=== PATIENT | female | born 1950 | race Caucasian/White ===

== ENCOUNTER → 2016-09-21 | Outpatient (CLI) | payer MEDICARE ==
[~2016-09-21] MED LIST: ASPI-586 PO; ASPI-999 PO; ATOR40TA70 PO; BISM262O27 PO; BISO1TAB8 PO; LEVO50TA PO; MULT1TAB69 PO; POTA20TA15 PO; [UNRECOGNIZED DRUG - CODE] PO
--- NOTE | 2016-09-23 19:13 | Diagnostic Imaging Report ---
Bilateral screening mammogram The current study was also evaluated with a Computer Aided Detection (CAD) system. Indication: Screening. No current complaints stated on the questionnaire. COMPARISON: The breasts are composed of heterogeneously dense parenchyma which may decrease mammographic sensitivity. There are scattered benign-appearing calcifications seen. Allowing for technique and positional differences, no suspicious change is seen. IMPRESSION: Dense breasts with no definite change. ACR BI-RADS Category 2: Benign findings. Result letter will be mailed to the patient. Note: At least 10% of breast cancer is not imaged by mammography. Dictated by: Dictated on workstation # [id number]
== END ==
LOC: RAD 09:22
PROVIDERS: ATTEND Nurse Practitioner Family
DX: Z12.31 Encounter for screening mammogram for malignant neoplasm of breast (principal)
CPT/HCPCS: 77067

== ENCOUNTER → 2017-04-12 | Outpatient (CLI) | payer MEDICARE ==
--- NOTE | 2017-04-12 21:23 | Diagnostic Imaging Report ---
Right breast ultrasound. INDICATION: Pain in the axilla and a bug bite along the right breast. FINDINGS: There is a focal area of skin thickening along the bug bite and there is a hypoechoic abnormal area measuring 1.9 x 1.1 x 0.5 cm at the 3 o'clock zone, 2 cm from the nipple. This is surrounded by slightly increased vascularity and is probably a small phlegmon related to a focal infection. No significant abscess is seen. In the axilla, there are mildly enlarged reactive lymph nodes seen up to 2.1 x 2.2 cm in size. The four quadrants and retroareolar region scanned demonstrate no suspicious mass. IMPRESSION: Findings are suggestive of a mild focal infection without drainable abscess in the right breast centered around the 3 o'clock zone with reactive lymph nodes in the axilla. Clinical follow-up is recommended. ACR BI-RADS Category 2: Benign findings. Dictated by: Dictated on workstation # [id number]
--- NOTE | 2017-04-12 21:27 | Diagnostic Imaging Report ---
Right breast diagnostic mammogram with tomography. The current study was also evaluated with a Computer Aided Detection (CAD) system. COMPARISON: 09/21/2016. INDICATION: Bug bite in the medial aspect of the breast with tenderness of the axilla. FINDINGS: The site of bug bite is marked in the medial periareolar region with mild skin thickening at this location without suspicious underlying lesion, mass or evidence of abscess. Heterogeneously dense parenchyma is seen in the breast with no suspicious lesion. Benign-appearing calcifications are noted. Minimally prominent right axillary lymph nodes are noted. IMPRESSION: Slight skin thickening at the bite site in the medial aspect of the right breast and axillary reactive lymph nodes are seen. Ultrasound evaluation pending. ACR BI-RADS Category 0: Incomplete. (Needs additional imaging evaluation). Result letter will be mailed to the patient. Note: At least 10% of breast cancer is not imaged by mammography. Dictated by: Dictated on workstation # [id number]
== END ==
LOC: RAD 08:00
PROVIDERS: ATTEND Nurse Practitioner Family
DX: N64.59 Other signs and symptoms in breast (principal); N64.4 Mastodynia
CPT/HCPCS: 76641

== ENCOUNTER 2017-05-11 12:50 | Outpatient (RCR) | payer MEDICARE ==
[2017-05-05 15:11] VITALS: BP 148/76
[2017-05-05 15:17] VITALS: BP 148/76
[2017-05-05] MEDS: VANCOMYCIN 1250 MG/NS 250 ML IVPB IV SCH ×2 (15:45)
[2017-05-05 15:49] VITALS: BP 148/76
[2017-05-05 16:20] LABS: BUN/CREATININE RATIO 12; CALCIUM 9.2 MG/DL (8.5-10.1); CARBON DIOXIDE 25 MMOL/L (21-32); CHLORIDE 100 MMOL/L (98-107); CREATININE SERUM 0.69 MG/DL (0.60-1.30); GFR ESTIMATED > 60; GLUCOSE 89 MG/DL (70-105); POTASSIUM 3.2 MMOL/L (3.6-5.0); SODIUM 135 MMOL/L (135-145)
[2017-05-05 17:52] VITALS: BP 148/76
[2017-05-06] MEDS: VANCOMYCIN 1250 MG/NS 250 ML IVPB IV SCH ×2 (14:08)
[2017-05-06 15:25] VITALS: BP 152/77
[2017-05-07 10:00] VITALS: BP 134/81
[2017-05-07] MEDS: VANCOMYCIN INJECTION 1,500 MG in NS IV 500 ML 500 ML IV SCH (11:18)
[2017-05-08 11:05] VITALS: BP 148/89
[2017-05-08] MEDS: VANCOMYCIN INJECTION 1,500 MG in NS IV 500 ML 500 ML IV SCH (11:45)
[2017-05-09] MEDS: VANCOMYCIN INJECTION 1,500 MG in NS IV 500 ML 500 ML IV SCH (13:29)
[2017-05-09 15:15] VITALS: BP 142/74
[2017-05-10 12:55] VITALS: BP 129/69
[2017-05-10] MEDS: VANCOMYCIN 1,750 MG/NS 500 ML IVPB IV SCH ×2 (13:20)
[~2017-05-11] VITALS: Ht 162.6 cm; Wt 59.0 kg
[~2017-05-11 12:50] MED LIST changes: +TROUGH ORDER-PHARMACY XX NR
[2017-05-11] MEDS: VANCOMYCIN 1,750 MG/NS 500 ML IVPB IV SCH ×2 (13:15)
[2017-05-11 15:20] VITALS: BP 140/69
[2017-05-20] MEDS ORDERED: UBID1CAP3 PO (11:14)
[2017-05-20] MEDS ORDERED: CHOL20003 PO (11:14)
[2017-05-20] MEDS ORDERED: ATOR20TA66 PO (11:16)
[2017-05-20] MEDS ORDERED: ACHD5005 PO (11:18)
[2017-06-07] MEDS ORDERED: diphenhydrAMINE 25 MG TAB (BENADRYL) PO ONE (15:35)
== END 2017-08-03 | disposition home or self-care (01) ==
LOC: SDC 12:50
PROVIDERS: ATTEND Surgery
DX: N61.0 Mastitis without abscess (principal)
CPT/HCPCS: 36415; 80048; 80202; 96365; 96366

== ENCOUNTER 2017-05-20 10:22 | Day surgery (SDC) | payer MEDICARE ==
[~2017-05-20] VITALS: Ht 163.8 cm; Wt 62.1 kg
[~2017-05-20 10:22] MED LIST changes: -TROUGH ORDER-PHARMACY XX NR
[2017-05-20] MEDS ORDERED: UBID1CAP3 PO (11:14)
[2017-05-20] MEDS ORDERED: CHOL20003 PO (11:14)
[2017-05-20] MEDS ORDERED: ATOR20TA66 PO (11:16)
--- NOTE | 2017-05-20 11:17 | Progress Note-Pre Operative ---
Pre-Operative Progress Note H&P Reviewed The H&P was reviewed, patient examined and no changes noted. 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
[2017-05-20 11:18] VITALS: BP 136/78
[2017-05-20] MEDS ORDERED: HYDR-3812 PO (11:18)
--- NOTE | 2017-05-20 11:19 | Discharge Inst-Simple/Standard ---
Discharge Inst-Standard Discharge Medications New, Converted or Re-Newed RX: RX on Chart Patient Instructions/Follow Up Plan of Care/Instructions/FU: dressings off in 48 hours. May use the port. To see Dr. Arteaga as arranged before Activity as Tolerated: Yes Discharge Diet: No Restrictions MICHAEL PADILLA MD May 20, 2017 11:19 am
[2017-05-20] MEDS ORDERED: BUP/EPI 0.5% 1:200,000 (MARCAINE) 10ML VIAL IJ ONE (11:35)
[2017-05-20] MEDS ORDERED: HEParin (CENTRAL IV FLUSH) 500 UNIT/5 ML SYR ONE (11:35)
[2017-05-20] MEDS ORDERED: 0.9% SODIUM CHLORIDE PF INJ 20 ML VIAL ONE (11:36)
[2017-05-20] MEDS ORDERED: ceFAZolin 1,000 MG (ANCEF) VIAL ONE (12:01)
[2017-05-20] MEDS ORDERED: NS (IVPB) 50 ML ONE (12:01)
[2017-05-20] MEDS ORDERED: ONDANSETRON 4 MG/2 ML (SDV) Z0FRAN ONE (12:01)
[2017-05-20] MEDS ORDERED: FAMOTIDINE 20MG/2ML IV (PEPCID) ONE (12:01)
[2017-05-20] MEDS ORDERED: proPOfol 200 MG/20 ML (DIPRIVAN) VIAL IV ONE (12:03)
[2017-05-20] MEDS ORDERED: fentaNYL INJECTION 100 MCG/2 ML AMP ONE (12:03)
[2017-05-20] MEDS ORDERED: LIDOCAINE PF 2% 5 ML (XYLOCAINE) VIAL ONE (12:03)
[2017-05-20] MEDS ORDERED: SEVOFLURANE (ULTANE) 15 ML INHAL SOLN ONE (12:03)
[2017-05-20] MEDS ORDERED: MIDAZOLAM 2 MG/2 ML (VERSED) VIAL ONE (12:03)
[2017-05-20] MEDS ORDERED: DEXAMETHASONE 10 MG/ML (DECADRON) 1 ML VIAL ONE (12:03)
[2017-05-20] MEDS ORDERED: LACTATED RINGERS 1,000 ML IV PRN (12:10)
[2017-05-20] MEDS ORDERED: ONDANSETRON 4 MG/2 ML (SDV) Z0FRAN IV ONE (12:15)
[2017-05-20] MEDS ORDERED: FAMOTIDINE 20MG/2ML IV (PEPCID) IV ONE (12:15)
[2017-05-20] MEDS ORDERED: ceFAZolin 1 GM/NS 50 ML IVPB IV ONE ×2 (12:45)
[2017-05-20] MEDS ORDERED: ONDANSETRON 4 MG/2 ML (SDV) Z0FRAN IVP PRN (13:30)
[2017-05-20] MEDS ORDERED: morphine INJ 10 MG/ML 1ML (SYR OR VIAL) IVP PRN (13:30)
--- NOTE | 2017-05-20 13:39 | Operative Report ---
Operative Report Date of Procedure/Surgery May 20, 2017 Surgeon (s) MICHAEL PADILLA MD Emergency Room Physician (s): N/A Post-Operative Diagnosis Same Procedure Performed Lsyhla-l-Lzox placement Description of Procedure Anesthesia Type: General Estimated blood loss (mL): Minimal Specimen(s) collected/removed None Description of the Procedure Indication for procedure: This lady is due to receive systemic chemotherapy to manage triple negative, inflammatory carcinoma of the right breast. To facilitate this, placing an Hoqeys-r-Zvix was felt to be reasonable. Informed consent was obtained after reviewing the operative details and complications of hematoma, bacteremia and malfunction of the catheter requiring replacement. Description of procedure: She was placed supine on the operative table and general anesthesia induced using a laryngeal mask airway. Ancef was administered intravenously as prophylaxis against wound infection. Sequential compression devices were placed around her legs, to minimize the risk of venous thrombosis. Neck and upper chest were prepared and draped in the usual sterile manner. Left internal jugular vein was localized using a 12 MHz ultrasound probe and a floppy guidewire introduced into the heart, under fluoroscopy. A subcutaneous pocket was created over the infraclavicular fossa and the Remy catheter brought into the neck, in a retrograde fashion. It was then advanced into the heart, under fluoroscopy, using the peel-away sheath. The catheter was then pulled back to the superior vena cava and connected to the Iopzzc-l-Cbgg, that had been primed with heparinized saline. I was able to aspirate and flush the system without any difficulty. The port was then secured to the pectoralis tissue using 2-0 Prolene sutures. Skin incisions were closed using 3-0 Vicryl for the subcutaneous tissue and 4-0 Vicryl for skin, in a subcuticular fashion. Pre-preemptive analgesia was established using 0.5 percent Marcaine with epinephrine. She tolerated the procedure well, was extubated in the operating room and taken to the recovery room in a stable condition. Findings of the Procedure See op report Allergies and Home Medications Allergies Coded Allergies: Sulfa (Sulfonamide Antibiotics) (Verified Adverse Reaction, Mild, 08/27/15) "does not agree with me" Home Medications Aspirin 81 Mg Tab.chew, 81 MG PO DAILY for 30 Days, Ref 5 Prescribed by: WILFRID YOUNGER on 08/28/15 1256 Atorvastatin Calcium 20 Mg Tablet, 20 MG PO HS, (Reported) Bismuth Subsalicylate 262 Mg/15 Ml Oral.susp, 15 ML PO DAILY PRN for HEARTBURN, (Reported) Bisoprolol Fumarate/Hctz 1 Each Tablet, 1 TAB PO DAILY, (Reported) Cholecalciferol (Vitamin D3) 2,000 Unit Capsule, 2,000 UNIT PO DAILY, (Reported) Hydrocodone/Acetaminophen 1 Each Tablet, 1-2 TAB PO 4-6HR PRN for PAIN, #30 Ref 0 Prescribed by: MICHAEL PADILLA on 05/20/17 1118 Levothyroxine Sodium 50 Mcg Tablet, 50 MCG PO DAILY, (Reported) Potassium Chloride 20 Meq Tab.er.prt, 20 MEQ PO EVERY EVENING, (Reported) Ubidecarenone/Vitamin E 1 Each Capsule, 1 EACH PO DAILY, (Reported) MICHAEL PADILLA MD May 20, 2017 1:38 pm
--- NOTE | 2017-05-20 13:51 | Diagnostic Imaging Report ---
Indication: Central line placement Impression: 55 seconds of fluoroscopy was used by Dr. Jeter during left IJ Port-A-Cath insertion. Single digital image shows Port-A-Cath tip projecting over the cavoatrial junction. Dictated by: Dictated on workstation # [id number]
[2017-05-20 14:00] VITALS: BP 136/99
[2017-05-20 14:30] VITALS: BP 147/86
[2017-05-20 15:00] VITALS: BP 147/80
[2017-05-20 15:15] VITALS: BP 147/80
== END 2017-05-20 15:15 | disposition home or self-care (01) ==
LOC: SDC 10:22
PROVIDERS: ATTEND Surgery
DX: C50.911 Malignant neoplasm of unspecified site of right female breast (principal); I25.10 Atherosclerotic heart disease of native coronary artery without angina pectoris; I10 Essential (primary) hypertension; E78.00 Pure hypercholesterolemia, unspecified; Z82.49 Family history of ischemic heart disease and other diseases of the circulatory system; Z87.891 Personal history of nicotine dependence; Z79.82 Long term (current) use of aspirin; Z79.899 Other long term (current) drug therapy; Z88.2 Allergy status to sulfonamides
CPT/HCPCS: 87081

== ENCOUNTER → 2017-05-23 | Outpatient (CLI) | payer MEDICARE ==
[~2017-05-23] MED LIST changes: +ATOR20TA66 PO; +CHOL20003 PO; +DIATRIZOATE MEGLUM/SODIUM 37% 120 ML (GASTROGRAFIN) PO ONE; +GADOBUTROL 7.5 MMOL/7.5 ML (GADAVIST) VIAL IV ONE; +HYDR-3812 PO; +IOHEXOL 350 MG/ML 100 ML (OMNIPAQUE 350) VIAL IV ONE; +NS 100 ML (IVPB) BAG IV ONE; +UBID1CAP3 PO
[2017-05-23] MEDS: CATHETER FLUSH 10 ML SYR IV PRN ×2 (10:24→11:25)
[2017-05-23 10:58] LABS: BLOOD UREA NITROGEN 7 MG/DL (7-18); BUN/CREATININE RATIO 10; CREATININE SERUM 0.72 MG/DL (0.60-1.30); GFR ESTIMATED > 60
--- NOTE | 2017-05-23 12:57 | Diagnostic Imaging Report ---
PROCEDURE: CT chest, abdomen, and pelvis with contrast. TECHNIQUE: Multiple contiguous axial images were obtained through the chest, abdomen, and pelvis after the administration of intravenous contrast. INDICATION: Breast cancer. 100 mL of Omnipaque 350 is administered intravenously. FINDINGS: CT chest: Please note that the uppermost aspect of the lung apices is not included on this exam. There are nodules seen in the upper aspect of the right breast concerning for multifocal disease with associated skin thickening around the right areola. There are enlarged axillary lymph nodes up to 1.8 cm in short axis. There is partial visualization of nodular density questioned to be part of the external jugular vein versus a right supraclavicular lymph node. CT scan of the neck is suggested to better evaluate. There is a borderline-sized lymph node measuring 9 mm in short axis within the left axilla. The lungs demonstrate no significant consolidation, mass or suspicious nodule. There is no mediastinal mass or significantly enlarged lymph node seen. The thoracic aorta is normal in caliber. The heart size is normal. No pericardial or pleural effusion. The osseous structures appear grossly unremarkable. CT abdomen and pelvis: The liver, the spleen, the pancreas, and the adrenal glands appear unremarkable. Cholecystectomy clips are seen. The kidneys have symmetric enhancement and contrast excretion. No hydronephrosis. There are bilateral cysts seen in the kidneys. It is up to 1.6 cm in size. The abdominal aorta is normal in caliber. No para-aortic significantly enlarged lymph node is seen. There is suggestion of prior hysterectomy. No bowel obstruction. No significant free fluid or fluid collection in the abdomen or pelvis. The SI joints demonstrate sclerotic degenerative changes. There are also degenerative changes in the lower lumbar spine facet joints. IMPRESSION: CT chest: 1. Multiple nodules are seen in the upper right breast, could relate to multicentric breast cancer. There are multiple significantly enlarged right axillary lymph nodes. 2. Indeterminate borderline 0.9 cm lymph node in the left axilla, probably incidental. 3. Partial visualization of nodular density in the right supraclavicular region. It is uncertain if this is part of right supraclavicular lymph node or dilated vein. Correlation with CT scan of the neck is suggested. CT abdomen and pelvis: No evidence of metastasis. Dictated by: Dictated on workstation # [id number]
--- NOTE | 2017-05-23 14:34 | Diagnostic Imaging Report ---
Whole body bone scan. Technique: After the intravenous administration of 24.8 mCi of Technetium 99m MDP, whole body delayed phase bone scan images were obtained with lateral views of the head and neck and the chest regions. Indication: Breast cancer. Findings: There is normal distribution of the tracer in the osseous structures. There are areas of mild increased uptake in joints including shoulders, hip and cervical spine in a pattern in favor of degenerative changes with no intense areas of activity in a pattern to suggest osseous metastasis. Renal and bladder excretion related activity seen. IMPRESSION: No scintigraphic evidence of osseous metastasis. Dictated by: Dictated on workstation # [id number]
--- NOTE | 2017-05-23 22:48 | Diagnostic Imaging Report ---
INDICATION: Recent right breast cancer diagnosis. COMPARISON: Mammogram and ultrasound dated 04/12/2017 PROCEDURE: Dynamic enhanced breast MRI is performed with postcontrast sagittal vibrant sequencing in the sagittal plane. The images are reviewed utilizing Computer Aided Detection (CAD) stream work station, as well. FINDINGS: The right breast is markedly abnormal in appearance with diffuse skin thickening and numerous enhancing masses throughout the right breast with thickening of the trabecula. The overall appearance is highly suggestive of inflammatory carcinoma. There are numerous enlarged lymph nodes in the right axilla almost certainly a metastatic involvement. The largest lymph node measures approximately 2.5 cm x 1.8 cm. The next largest node measures about 2.9 cm x 1.1 cm. Numerous additional morphologically abnormal enlarged lymph nodes are seen in the right axilla. There is abnormal enhancement with thickening of the right pectoralis muscle for involvement of the chest wall. This is best seen on series 9 image 282, where there is a 2.5 cm x 0.8 cm somewhat linear area of enhancement along the posterior aspect of the pectoralis muscle. This is also demonstrated fairly well on series 805 image 61. There is an additional area of possible chest wall enhancement along the posterior aspect of the pectoralis muscle more superiorly and medially near the sternum best seen on series 9 image 187 and series 805 image 56. There is some soft tissue fullness and enhancement along the internal mammary chain, concerning for some subtle adenopathy here, the largest of which measures approximately 6 mm in short axis diameter seen on series 9 image 256. There are a couple of enhancing lymph nodes in the left axilla which do not appear as morphologically abnormal. The largest measures about 7 mm in short axis diameter. No enhancing mass or suspicious finding is seen within the left breast. IMPRESSION: 1. There are findings highly concerning for inflammatory carcinoma of the right breast with significant metastatic involvement of the axillary lymph nodes, possible internal mammary metastatic lymph nodes as well as suspicion for involvement of the right pectoralis muscle/chest wall. 2. There is no evidence of malignancy seen within the left breast. ACR BI-RADS category 6, known malignancy. Dictated by: Dictated on workstation # [id number]
== END ==
LOC: RAD 09:28
PROVIDERS: ATTEND Surgery
DX: C50.911 Malignant neoplasm of unspecified site of right female breast (principal)
CPT/HCPCS: 36415; 71260; 74177; 77059; 78306; 82565; 84520

== ENCOUNTER → 2017-05-25 | Outpatient (CLI) | payer MEDICARE ==
[~2017-05-25] MED LIST changes: -DIATRIZOATE MEGLUM/SODIUM 37% 120 ML (GASTROGRAFIN) PO ONE; -GADOBUTROL 7.5 MMOL/7.5 ML (GADAVIST) VIAL IV ONE; -IOHEXOL 350 MG/ML 100 ML (OMNIPAQUE 350) VIAL IV ONE; -NS 100 ML (IVPB) BAG IV ONE
== END ==
LOC: CARD 11:02
PROVIDERS: ATTEND Internal Medicine Hematology & Oncology
DX: Z01.810 Encounter for preprocedural cardiovascular examination (principal); C50.919 Malignant neoplasm of unspecified site of unspecified female breast
CPT/HCPCS: 93306

== ENCOUNTER → 2017-07-25 | Outpatient (CLI) | payer MEDICARE ==
[~2017-07-25] MED LIST changes: +ACHD5005 PO; -HYDR-3812 PO
--- NOTE | 2017-07-25 11:34 | Diagnostic Imaging Report ---
INDICATION: Breast carcinoma. This study is performed for restaging. COMPARISON: Correlation is made with the prior ultrasound from 04/12/2017. FINDINGS: Sonographic interrogation of the 3 o'clock location of the right breast 2 cm from the nipple was performed. There is an area of ill-defined hypoechogenicity measuring 10 mm x 8 mm x 6 mm. This area measured 18 mm x 11 mm x 5 mm on the prior study. No new parenchymal mass is seen. The multiple enlarged lymph nodes in the right axilla are no longer appreciated. There is a small 5 mm lymph node in the right axilla. IMPRESSION: Reduction in size of the hypoechoic mass at the 3 o'clock location of the right breast and resolution of the right axillary lymphadenopathy when compared with the prior study from 04/12/2017. ACR BI-RADS Category 2: Benign findings. Dictated by: Dictated on workstation # [id number]
== END ==
LOC: RAD 09:53
PROVIDERS: ATTEND Internal Medicine Hematology & Oncology
DX: C50.811 Malignant neoplasm of overlapping sites of right female breast (principal); R59.0 Localized enlarged lymph nodes
CPT/HCPCS: 76641

== ENCOUNTER 2017-08-17 09:18 | Outpatient (RCR) | payer MEDICARE ==
[2017-05-26 10:20] LABS: BASOPHILS % (AUTO) 1 % (0-10); EOSINOPHILS # (AUTO) 0.1 10^3/uL (0.0-0.3); EOSINOPHILS % (AUTO) 2 % (0-10); HEMATOCRIT 40 % (35-52); HEMOGLOBIN 13.8 G/DL (11.5-16.0); LYMPHOCYTES # (AUTO) 0.8 X 10^3 (1.0-4.0); LYMPHOCYTES % (AUTO) 12 % (12-44); MEAN CORPUSCULAR HEMOGLOBIN 31 PG (25-34); MEAN CORPUSCULAR HGB CONC 35 G/DL (32-36); MEAN CORPUSCULAR VOLUME 91 FL (80-99); MONOCYTES # (AUTO) 0.8 X 10^3 (0.0-1.0); MONOCYTES % (AUTO) 12 % (0-12); NEUTROPHILS # (AUTO) 4.8 X 10^3 (1.8-7.8); NEUTROPHILS % (AUTO) 74 % (42-75); PLATELET COUNT 211 10^3/uL (130-400); RED CELL DISTRIBUTION WIDTH 12.3 % (10.0-14.5); WHITE BLOOD COUNT 6.5 10^3/uL (4.3-11.0)
[2017-05-26 10:48] LABS: ALANINE AMINOTRANSFERASE 36 U/L (0-55); ALKALINE PHOSPHATASE 72 U/L (40-136); BILIRUBIN,TOTAL 0.7 MG/DL (0.1-1.0); BUN/CREATININE RATIO 10; CALCIUM 9.4 MG/DL (8.5-10.1); CARBON DIOXIDE 26 MMOL/L (21-32); CHLORIDE 102 MMOL/L (98-107); CREATININE SERUM 0.67 MG/DL (0.60-1.30); GFR ESTIMATED > 60; GLUCOSE 96 MG/DL (70-105); POTASSIUM 2.8 MMOL/L (3.6-5.0); SODIUM 137 MMOL/L (135-145); TOTAL PROTEIN 6.8 GM/DL (6.4-8.2)
[2017-06-01 11:14] LABS: BASOPHILS % (AUTO) 0 % (0-10); EOSINOPHILS % (AUTO) 6 % (0-10); HEMATOCRIT 39 % (35-52); HEMOGLOBIN 12.9 G/DL (11.5-16.0); LYMPHOCYTES # (AUTO) 0.2 X 10^3 (1.0-4.0); LYMPHOCYTES % (AUTO) 56 % (12-44); MEAN CORPUSCULAR HEMOGLOBIN 31 PG (25-34); MEAN CORPUSCULAR HGB CONC 33 G/DL (32-36); MEAN CORPUSCULAR VOLUME 93 FL (80-99); MEAN PLATELET VOLUME 10.8 FL (7.4-10.4); MONOCYTES % (AUTO) 6 % (0-12); NEUTROPHILS # (AUTO) 0.1 X 10^3 (1.8-7.8); NEUTROPHILS % (AUTO) 32 % (42-75); PLATELET COUNT 61 10^3/uL (130-400); RED BLOOD COUNT 4.18 10^6/uL (4.35-5.85); RED CELL DISTRIBUTION WIDTH 12.2 % (10.0-14.5)
[2017-06-01 11:18] LABS: WHITE BLOOD COUNT 0.3 10^3/uL (4.3-11.0)
[2017-06-01 11:35] LABS: BUN/CREATININE RATIO 13; CALCIUM 9.3 MG/DL (8.5-10.1); CARBON DIOXIDE 28 MMOL/L (21-32); CHLORIDE 101 MMOL/L (98-107); CREATININE SERUM 0.68 MG/DL (0.60-1.30); GFR ESTIMATED > 60; GLUCOSE 106 MG/DL (70-105); POTASSIUM 4.4 MMOL/L (3.6-5.0); SODIUM 136 MMOL/L (135-145)
[2017-06-09 10:48] LABS: BASOPHILS # (AUTO) 0.1 10^3/uL (0.0-0.1); BASOPHILS % (AUTO) 1 % (0-10); EOSINOPHILS % (AUTO) 0 % (0-10); HEMATOCRIT 36 % (35-52); HEMOGLOBIN 12.3 G/DL (11.5-16.0); LYMPHOCYTES # (AUTO) 0.6 X 10^3 (1.0-4.0); LYMPHOCYTES % (AUTO) 5 % (12-44); MEAN CORPUSCULAR HEMOGLOBIN 31 PG (25-34); MEAN CORPUSCULAR HGB CONC 34 G/DL (32-36); MEAN CORPUSCULAR VOLUME 92 FL (80-99); MEAN PLATELET VOLUME 9.4 FL (7.4-10.4); MONOCYTES # (AUTO) 0.7 X 10^3 (0.0-1.0); MONOCYTES % (AUTO) 6 % (0-12); NEUTROPHILS # (AUTO) 10.9 X 10^3 (1.8-7.8); NEUTROPHILS % (AUTO) 88 % (42-75); PLATELET COUNT 243 10^3/uL (130-400); RED BLOOD COUNT 3.94 10^6/uL (4.35-5.85); RED CELL DISTRIBUTION WIDTH 12.5 % (10.0-14.5); WHITE BLOOD COUNT 12.4 10^3/uL (4.3-11.0)
[2017-06-09 11:08] LABS: ALANINE AMINOTRANSFERASE 28 U/L (0-55); ALBUMIN 3.8 GM/DL (3.2-4.5); ALKALINE PHOSPHATASE 77 U/L (40-136); BILIRUBIN,TOTAL 0.2 MG/DL (0.1-1.0); BUN/CREATININE RATIO 14; CARBON DIOXIDE 25 MMOL/L (21-32); CHLORIDE 103 MMOL/L (98-107); CREATININE SERUM 0.69 MG/DL (0.60-1.30); GFR ESTIMATED > 60; GLUCOSE 133 MG/DL (70-105); POTASSIUM 3.2 MMOL/L (3.6-5.0); SODIUM 137 MMOL/L (135-145); TOTAL PROTEIN 6.7 GM/DL (6.4-8.2)
[2017-06-16 10:14] LABS: BASOPHILS % (AUTO) 12 % (0-10); EOSINOPHILS % (AUTO) 6 % (0-10); HEMATOCRIT 34 % (35-52); HEMOGLOBIN 11.5 G/DL (11.5-16.0); LYMPHOCYTES # (AUTO) 0.1 X 10^3 (1.0-4.0); LYMPHOCYTES % (AUTO) 35 % (12-44); MEAN CORPUSCULAR HEMOGLOBIN 31 PG (25-34); MEAN CORPUSCULAR HGB CONC 34 G/DL (32-36); MEAN CORPUSCULAR VOLUME 92 FL (80-99); MEAN PLATELET VOLUME 9.6 FL (7.4-10.4); MONOCYTES # (AUTO) 0.1 X 10^3 (0.0-1.0); MONOCYTES % (AUTO) 21 % (0-12); NEUTROPHILS # (AUTO) 0.1 X 10^3 (1.8-7.8); NEUTROPHILS % (AUTO) 26 % (42-75); PLATELET COUNT 198 10^3/uL (130-400); RED BLOOD COUNT 3.69 10^6/uL (4.35-5.85); RED CELL DISTRIBUTION WIDTH 12.5 % (10.0-14.5)
[2017-06-16 10:16] LABS: WHITE BLOOD COUNT 0.3 10^3/uL (4.3-11.0)
[2017-06-16 10:30] LABS: BUN/CREATININE RATIO 16; CALCIUM 9.4 MG/DL (8.5-10.1); CARBON DIOXIDE 28 MMOL/L (21-32); CHLORIDE 101 MMOL/L (98-107); CREATININE SERUM 0.67 MG/DL (0.60-1.30); GFR ESTIMATED > 60; GLUCOSE 105 MG/DL (70-105); POTASSIUM 4.2 MMOL/L (3.6-5.0); SODIUM 137 MMOL/L (135-145)
[2017-06-23 14:09] LABS: BASOPHILS # (AUTO) 0.1 10^3/uL (0.0-0.1); BASOPHILS % (AUTO) 1 % (0-10); EOSINOPHILS # (AUTO) 0.1 10^3/uL (0.0-0.3); EOSINOPHILS % (AUTO) 0 % (0-10); HEMATOCRIT 31 % (35-52); HEMOGLOBIN 10.6 G/DL (11.5-16.0); LYMPHOCYTES # (AUTO) 0.4 X 10^3 (1.0-4.0); LYMPHOCYTES % (AUTO) 2 % (12-44); MEAN CORPUSCULAR HEMOGLOBIN 31 PG (25-34); MEAN CORPUSCULAR HGB CONC 34 G/DL (32-36); MEAN CORPUSCULAR VOLUME 91 FL (80-99); MEAN PLATELET VOLUME 9.5 FL (7.4-10.4); MONOCYTES # (AUTO) 1.4 X 10^3 (0.0-1.0); MONOCYTES % (AUTO) 8 % (0-12); NEUTROPHILS # (AUTO) 16.3 X 10^3 (1.8-7.8); NEUTROPHILS % (AUTO) 89 % (42-75); PLATELET COUNT 176 10^3/uL (130-400); RED CELL DISTRIBUTION WIDTH 13.3 % (10.0-14.5); WHITE BLOOD COUNT 18.2 10^3/uL (4.3-11.0)
[2017-06-23 14:34] LABS: ALANINE AMINOTRANSFERASE 24 U/L (0-55); ALBUMIN 3.5 GM/DL (3.2-4.5); ALKALINE PHOSPHATASE 81 U/L (40-136); BILIRUBIN,TOTAL 0.4 MG/DL (0.1-1.0); BUN/CREATININE RATIO 15; CALCIUM 8.8 MG/DL (8.5-10.1); CARBON DIOXIDE 25 MMOL/L (21-32); CHLORIDE 99 MMOL/L (98-107); CREATININE SERUM 0.66 MG/DL (0.60-1.30); GFR ESTIMATED > 60; GLUCOSE 126 MG/DL (70-105); POTASSIUM 3.1 MMOL/L (3.6-5.0); SODIUM 134 MMOL/L (135-145); TOTAL PROTEIN 6.4 GM/DL (6.4-8.2)
[2017-06-30 13:16] LABS: BASOPHILS % (AUTO) 7 % (0-10); EOSINOPHILS % (AUTO) 14 % (0-10); HEMATOCRIT 25 % (35-52); HEMOGLOBIN 9.7 G/DL (11.5-16.0); LYMPHOCYTES # (AUTO) 0.1 X 10^3 (1.0-4.0); LYMPHOCYTES % (AUTO) 50 % (12-44); MEAN CORPUSCULAR HEMOGLOBIN 31 PG (25-34); MEAN CORPUSCULAR HGB CONC 39 G/DL (32-36); MEAN CORPUSCULAR VOLUME 80 FL (80-99); MEAN PLATELET VOLUME 8.5 FL (7.4-10.4); MONOCYTES % (AUTO) 14 % (0-12); NEUTROPHILS % (AUTO) 14 % (42-75); PLATELET COUNT 166 10^3/uL (130-400); RED BLOOD COUNT 3.14 10^6/uL (4.35-5.85); RED CELL DISTRIBUTION WIDTH 12.8 % (10.0-14.5)
[2017-06-30 13:19] LABS: WHITE BLOOD COUNT 0.1 10^3/uL (4.3-11.0)
[2017-06-30 13:31] LABS: BUN/CREATININE RATIO 23; CALCIUM 9.2 MG/DL (8.5-10.1); CARBON DIOXIDE 26 MMOL/L (21-32); CHLORIDE 101 MMOL/L (98-107); CREATININE SERUM 0.64 MG/DL (0.60-1.30); GFR ESTIMATED > 60; GLUCOSE 143 MG/DL (70-105); POTASSIUM 3.9 MMOL/L (3.6-5.0); SODIUM 136 MMOL/L (135-145)
[2017-07-07 10:22] LABS: BASOPHILS # (AUTO) 0.1 10^3/uL (0.0-0.1); BASOPHILS % (AUTO) 1 % (0-10); EOSINOPHILS % (AUTO) 0 % (0-10); HEMATOCRIT 29 % (35-52); HEMOGLOBIN 9.6 G/DL (11.5-16.0); LYMPHOCYTES # (AUTO) 0.3 X 10^3 (1.0-4.0); LYMPHOCYTES % (AUTO) 3 % (12-44); MEAN CORPUSCULAR HEMOGLOBIN 31 PG (25-34); MEAN CORPUSCULAR HGB CONC 33 G/DL (32-36); MEAN CORPUSCULAR VOLUME 93 FL (80-99); MEAN PLATELET VOLUME 8.5 FL (7.4-10.4); MONOCYTES % (AUTO) 8 % (0-12); NEUTROPHILS # (AUTO) 10.4 X 10^3 (1.8-7.8); NEUTROPHILS % (AUTO) 88 % (42-75); PLATELET COUNT 391 10^3/uL (130-400); RED BLOOD COUNT 3.11 10^6/uL (4.35-5.85); RED CELL DISTRIBUTION WIDTH 14.6 % (10.0-14.5); WHITE BLOOD COUNT 11.9 10^3/uL (4.3-11.0)
[2017-07-07 10:47] LABS: ALANINE AMINOTRANSFERASE 16 U/L (0-55); ALBUMIN 3.4 GM/DL (3.2-4.5); ALKALINE PHOSPHATASE 58 U/L (40-136); BILIRUBIN,TOTAL 0.3 MG/DL (0.1-1.0); BUN/CREATININE RATIO 11; CALCIUM 8.8 MG/DL (8.5-10.1); CARBON DIOXIDE 23 MMOL/L (21-32); CHLORIDE 101 MMOL/L (98-107); CREATININE SERUM 0.64 MG/DL (0.60-1.30); GFR ESTIMATED > 60; GLUCOSE 131 MG/DL (70-105); POTASSIUM 3.2 MMOL/L (3.6-5.0); SODIUM 134 MMOL/L (135-145); TOTAL PROTEIN 6.1 GM/DL (6.4-8.2)
[2017-07-14 13:51] LABS: BASOPHILS # (AUTO) 0.3 10^3/uL (0.0-0.1); BASOPHILS % (AUTO) 3 % (0-10); EOSINOPHILS % (AUTO) 0 % (0-10); HEMATOCRIT 33 % (35-52); HEMOGLOBIN 10.9 G/DL (11.5-16.0); LYMPHOCYTES # (AUTO) 1.8 X 10^3 (1.0-4.0); LYMPHOCYTES % (AUTO) 19 % (12-44); MEAN CORPUSCULAR HEMOGLOBIN 32 PG (25-34); MEAN CORPUSCULAR HGB CONC 33 G/DL (32-36); MEAN CORPUSCULAR VOLUME 95 FL (80-99); MEAN PLATELET VOLUME 8.7 FL (7.4-10.4); MONOCYTES # (AUTO) 1.6 X 10^3 (0.0-1.0); MONOCYTES % (AUTO) 16 % (0-12); NEUTROPHILS # (AUTO) 6.2 X 10^3 (1.8-7.8); NEUTROPHILS % (AUTO) 63 % (42-75); PLATELET COUNT 402 10^3/uL (130-400); RED BLOOD COUNT 3.45 10^6/uL (4.35-5.85); WHITE BLOOD COUNT 9.8 10^3/uL (4.3-11.0)
[2017-07-14 14:05] LABS: BUN/CREATININE RATIO 18; CALCIUM 9.4 MG/DL (8.5-10.1); CARBON DIOXIDE 23 MMOL/L (21-32); CHLORIDE 105 MMOL/L (98-107); GFR ESTIMATED > 60; GLUCOSE 116 MG/DL (70-105); POTASSIUM 3.2 MMOL/L (3.6-5.0); SODIUM 140 MMOL/L (135-145)
[2017-07-21 14:51] LABS: HEMATOCRIT 31 % (35-52); HEMOGLOBIN 10.1 G/DL (11.5-16.0); RED BLOOD COUNT 3.24 10^6/uL (4.35-5.85)
[2017-07-21 14:52] LABS: BASOPHILS % (AUTO) 6 % (0-10); EOSINOPHILS % (AUTO) 6 % (0-10); LYMPHOCYTES # (AUTO) 0.2 X 10^3 (1.0-4.0); LYMPHOCYTES % (AUTO) 49 % (12-44); MEAN CORPUSCULAR HEMOGLOBIN 31 PG (25-34); MEAN CORPUSCULAR HGB CONC 33 G/DL (32-36); MEAN CORPUSCULAR VOLUME 95 FL (80-99); MEAN PLATELET VOLUME 10.3 FL (7.4-10.4); MONOCYTES % (AUTO) 11 % (0-12); NEUTROPHILS # (AUTO) 0.1 X 10^3 (1.8-7.8); NEUTROPHILS % (AUTO) 29 % (42-75); PLATELET COUNT 65 10^3/uL (130-400); RED CELL DISTRIBUTION WIDTH 15.2 % (10.0-14.5)
[2017-07-21 14:53] LABS: WHITE BLOOD COUNT 0.4 10^3/uL (4.3-11.0)
[2017-07-21 15:08] LABS: BUN/CREATININE RATIO 23; CALCIUM 9.1 MG/DL (8.5-10.1); CARBON DIOXIDE 27 MMOL/L (21-32); CHLORIDE 101 MMOL/L (98-107); GFR ESTIMATED > 60; GLUCOSE 148 MG/DL (70-105); POTASSIUM 3.7 MMOL/L (3.6-5.0); SODIUM 138 MMOL/L (135-145)
[2017-08-04 13:23] LABS: BASOPHILS % (AUTO) 0 % (0-10); EOSINOPHILS % (AUTO) 0 % (0-10); HEMATOCRIT 33 % (35-52); HEMOGLOBIN 11.2 G/DL (11.5-16.0); LYMPHOCYTES # (AUTO) 0.4 X 10^3 (1.0-4.0); LYMPHOCYTES % (AUTO) 3 % (12-44); MEAN CORPUSCULAR HEMOGLOBIN 33 PG (25-34); MEAN CORPUSCULAR HGB CONC 34 G/DL (32-36); MEAN CORPUSCULAR VOLUME 96 FL (80-99); MEAN PLATELET VOLUME 8.9 FL (7.4-10.4); MONOCYTES # (AUTO) 0.4 X 10^3 (0.0-1.0); MONOCYTES % (AUTO) 2 % (0-12); NEUTROPHILS # (AUTO) 15.5 X 10^3 (1.8-7.8); NEUTROPHILS % (AUTO) 95 % (42-75); PLATELET COUNT 284 10^3/uL (130-400); RED BLOOD COUNT 3.42 10^6/uL (4.35-5.85); RED CELL DISTRIBUTION WIDTH 16.8 % (10.0-14.5); WHITE BLOOD COUNT 16.3 10^3/uL (4.3-11.0)
[2017-08-04 13:44] LABS: ALANINE AMINOTRANSFERASE 32 U/L (0-55); ALBUMIN 4.1 GM/DL (3.2-4.5); ALKALINE PHOSPHATASE 62 U/L (40-136); BILIRUBIN,TOTAL 0.3 MG/DL (0.1-1.0); BUN/CREATININE RATIO 21; CALCIUM 9.6 MG/DL (8.5-10.1); CARBON DIOXIDE 21 MMOL/L (21-32); CHLORIDE 106 MMOL/L (98-107); CREATININE SERUM 0.72 MG/DL (0.60-1.30); GFR ESTIMATED > 60; GLUCOSE 167 MG/DL (70-105); SODIUM 137 MMOL/L (135-145); TOTAL PROTEIN 6.5 GM/DL (6.4-8.2)
[2017-08-11 13:24] LABS: BASOPHILS % (AUTO) 0 % (0-10); EOSINOPHILS % (AUTO) 0 % (0-10); HEMATOCRIT 32 % (35-52); HEMOGLOBIN 11.3 G/DL (11.5-16.0); LYMPHOCYTES # (AUTO) 0.3 X 10^3 (1.0-4.0); LYMPHOCYTES % (AUTO) 4 % (12-44); MEAN CORPUSCULAR HEMOGLOBIN 33 PG (25-34); MEAN CORPUSCULAR HGB CONC 35 G/DL (32-36); MEAN CORPUSCULAR VOLUME 94 FL (80-99); MEAN PLATELET VOLUME 9.4 FL (7.4-10.4); MONOCYTES # (AUTO) 0.2 X 10^3 (0.0-1.0); MONOCYTES % (AUTO) 2 % (0-12); NEUTROPHILS # (AUTO) 7.4 X 10^3 (1.8-7.8); NEUTROPHILS % (AUTO) 94 % (42-75); PLATELET COUNT 258 10^3/uL (130-400); RED BLOOD COUNT 3.41 10^6/uL (4.35-5.85); RED CELL DISTRIBUTION WIDTH 15.2 % (10.0-14.5); WHITE BLOOD COUNT 7.9 10^3/uL (4.3-11.0)
[2017-08-11 13:42] LABS: BUN/CREATININE RATIO 19; CALCIUM 9.3 MG/DL (8.5-10.1); CARBON DIOXIDE 22 MMOL/L (21-32); CHLORIDE 101 MMOL/L (98-107); GFR ESTIMATED > 60; GLUCOSE 193 MG/DL (70-105); POTASSIUM 3.4 MMOL/L (3.6-5.0); SODIUM 137 MMOL/L (135-145)
[~2017-08-17] VITALS: Ht 163.1 cm; Wt 58.5 kg
[~2017-08-17 09:18] MED LIST changes: +CYCLOPHOSPHAMIDE IV SCH; +DOXORUBICIN HCL IV SCH; +FAMOTIDINE 20MG/2ML IV (CANCER CTR) IV SCH; +FOSAPREPITANT DIMEGLUMINE 150 MG in NS (IVPB) CANCER CENTER ONLY 150 ML IV SCH; -GADOBUTROL 7.5 MMOL/7.5 ML (GADAVIST) VIAL IV ONE; +LORazepam 0.5 MG (ATIVAN) TABLET CANCER CTR PO PRN; +NS IV 1000 ML (CANCER CTR) IV SCH; +NS IV SCH; +ONDANSETRON MDV (CANCER CENTER 16 MG, DEXAMETHASONE PF INJ (CANCER C 10 MG in NS (IVPB)... IV SCH; +PACLITAXEL 120 MG in NORMAL SALINE (CANCER CENTER) 250 ML IV SCH; +PALONOSETRON 0.25 MG, DEXAMETHASONE 10 MG/NS 50 ML IVPB IV PRN; +PALONOSETRON HCL 0.25 MG, DEXAMETHASONE PF INJ (CANCER C 10 MG in D5W 50 ML IV(CANCER C... IV PRN; +PEGFILGRASTIM 6 MG/0.6ML NEULASTA SC SCH; +diphenhydrAMINE 25 MG TAB (BENADRYL) CANCER CENTER PO SCH; +diphenhydrAMINE 50 MG/ML INJ (CANCER CENTER) IV PRN
[2017-08-17] MEDS ORDERED: NS IV 500 ML (CANCER CENTER) 500 ML ONE (09:58)
[2017-08-17 10:20] LABS: BASOPHILS # (AUTO) 0.1 10^3/uL (0.0-0.1); BASOPHILS % (AUTO) 1 % (0-10); EOSINOPHILS # (AUTO) 0.3 10^3/uL (0.0-0.3); EOSINOPHILS % (AUTO) 4 % (0-10); HEMATOCRIT 36 % (35-52); HEMOGLOBIN 12.2 G/DL (11.5-16.0); LYMPHOCYTES # (AUTO) 0.9 X 10^3 (1.0-4.0); LYMPHOCYTES % (AUTO) 13 % (12-44); MEAN CORPUSCULAR HEMOGLOBIN 33 PG (25-34); MEAN CORPUSCULAR HGB CONC 34 G/DL (32-36); MEAN CORPUSCULAR VOLUME 98 FL (80-99); MONOCYTES # (AUTO) 1.5 X 10^3 (0.0-1.0); MONOCYTES % (AUTO) 21 % (0-12); NEUTROPHILS # (AUTO) 4.4 X 10^3 (1.8-7.8); NEUTROPHILS % (AUTO) 61 % (42-75); PLATELET COUNT 259 10^3/uL (130-400); RED BLOOD COUNT 3.69 10^6/uL (4.35-5.85); RED CELL DISTRIBUTION WIDTH 15.3 % (10.0-14.5); WHITE BLOOD COUNT 7.2 10^3/uL (4.3-11.0)
[2017-08-17 10:32] LABS: BUN/CREATININE RATIO 14; CALCIUM 9.3 MG/DL (8.5-10.1); CARBON DIOXIDE 23 MMOL/L (21-32); CHLORIDE 104 MMOL/L (98-107); CREATININE SERUM 0.64 MG/DL (0.60-1.30); GFR ESTIMATED > 60; GLUCOSE 113 MG/DL (70-105); POTASSIUM 3.3 MMOL/L (3.6-5.0); SODIUM 139 MMOL/L (135-145)
[2017-08-17 15:12] LABS: CSF GLUCOSE 38 MG/DL (50-80); CSF TOTAL PROTEIN 82 MG/DL (15-40)
[2017-08-17 15:59] LABS: APPEARANCE,CSF CLEAR; COLOR,CSF COLORLESS
[2017-08-17 16:03] LABS: CSF TUBE NUMBER 4; RED BLOOD CELL,CSF 18 CELLS (0-0); WHITE BLOOD CELL,CSF 47 CELLS (0-5)
[2017-08-17 16:04] LABS: LYMPHOCYTES,CSF 85 %
== END 2017-08-22 | disposition home or self-care (01) ==
LOC: ONC 09:18
PROVIDERS: ATTEND Internal Medicine Hematology & Oncology
DX: C50.811 Malignant neoplasm of overlapping sites of right female breast (principal); R59.0 Localized enlarged lymph nodes; I25.10 Atherosclerotic heart disease of native coronary artery without angina pectoris; I10 Essential (primary) hypertension; E78.00 Pure hypercholesterolemia, unspecified; K21.9 Gastro-esophageal reflux disease without esophagitis; E03.9 Hypothyroidism, unspecified; Z17.0 Estrogen receptor positive status [ER+]; Z90.710 Acquired absence of both cervix and uterus; Z87.891 Personal history of nicotine dependence; Z79.899 Other long term (current) drug therapy; Z51.11 Encounter for antineoplastic chemotherapy
CPT/HCPCS: 36415; 36591; 80048; 80053; 82945; 83615; 83735; 84157; 85025; 86300; 87070; 87205; 89051; 96360; 96361; 96367; 96372; 96375; 96411; 96413; 96417; 99213

== ENCOUNTER → 2017-08-17 | Outpatient (CLI) | payer MEDICARE ==
[~2017-08-17] MED LIST changes: +GADOBUTROL 7.5 MMOL/7.5 ML (GADAVIST) VIAL IV ONE
--- NOTE | 2017-08-17 13:11 | Diagnostic Imaging Report ---
PROCEDURE: MR imaging of the brain with and without contrast. TECHNIQUE: Multiplanar, multisequence MR imaging of the brain was performed with and without contrast. INDICATION: Dizziness and balance disturbance. The patient has a history of breast carcinoma. COMPARISON: No prior studies are available for comparison. FINDINGS: The ventricles and sulci are appropriate for the patient's age. There are numerous T2 and FLAIR signal foci noted in the periventricular and subcortical white matter consistent with chronic microvascular ischemia. No diffusion restriction is identified to suggest acute ischemia. The normal expected flow-voids are identified within the carotid siphons. The postcontrast images do demonstrate areas of somewhat linear and nodular enhancement in the cerebellum. The areas of enhancement appear to be along the surfaces and is highly suspicious for leptomeningeal type enhancement. There is also some subtle areas of enhancement in the supratentorial region along the frontal convexities, also concerning for leptomeningeal pattern of enhancement. No definite intraparenchymal enhancement is seen. Corpus callosum is unremarkable. The sella and parasellar structures are unremarkable. IMPRESSION: Abnormal nodularity and enhancement noted along the surfaces of the cerebellum and bilateral frontal lobes consistent with a leptomeningeal pattern of enhancement. 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 Other considerations would include granulomatous infectious process. Cytologic evaluation of the cerebrospinal fluid to be performed for further evaluation. Dictated by: Dictated on workstation # [id number]
--- NOTE | 2017-08-17 14:58 | Progress Note-Standard ---
Standard Progress Note Progress Notes/Assess & Plan Date Seen by Provider: Aug 17, 2017 Time Seen by Provider: 14:10 Progress/Assessment & Plan Anesthesia Note ([id number]) Called to [facility] for diagnostic lumbar puncture. Discussed the case with Dr Aguilar. Plt count WNL and MRI Brain showed no C/I to lumbar puncture. Procedure +/- discussed with patient and son, ?'s answered. Pt in sitting position. Sterile P/D with ChloraPrep. 2 mL 1% Lidocaine for local. 22 G Pencan needle used. + CSF on 1st pass. ~3 mL CSF times 4 vials. Sent to lab per Dr Aguilar's orders. Sterile bandage applied. Returned to supine position. Discussed with pt PDPH symptoms and gave her treatment options if it should occur. Also told her to contact the cancer center with any questions and I will call her and discuss her symptoms. She understood and agreed. Pt tolerated the procedure well. Will be available if needed. CAROLE SINGH DO Aug 17, 2017 14:58
== END ==
LOC: RAD 10:06
PROVIDERS: ATTEND Internal Medicine Hematology & Oncology
DX: G93.89 Other specified disorders of brain (principal); Z85.3 Personal history of malignant neoplasm of breast
CPT/HCPCS: 70553

== ENCOUNTER 2017-08-23 11:01 | Outpatient (RCR) | payer MEDICARE ==
[~2017-08-23 11:01] MED LIST changes: -CYCLOPHOSPHAMIDE IV SCH; -DOXORUBICIN HCL IV SCH; -FAMOTIDINE 20MG/2ML IV (CANCER CTR) IV SCH; -FOSAPREPITANT DIMEGLUMINE 150 MG in NS (IVPB) CANCER CENTER ONLY 150 ML IV SCH; -LORazepam 0.5 MG (ATIVAN) TABLET CANCER CTR PO PRN; -NS IV 1000 ML (CANCER CTR) IV SCH; -NS IV SCH; -ONDANSETRON MDV (CANCER CENTER 16 MG, DEXAMETHASONE PF INJ (CANCER C 10 MG in NS (IVPB)... IV SCH; -PACLITAXEL 120 MG in NORMAL SALINE (CANCER CENTER) 250 ML IV SCH; -PALONOSETRON 0.25 MG, DEXAMETHASONE 10 MG/NS 50 ML IVPB IV PRN; -PALONOSETRON HCL 0.25 MG, DEXAMETHASONE PF INJ (CANCER C 10 MG in D5W 50 ML IV(CANCER C... IV PRN; -PEGFILGRASTIM 6 MG/0.6ML NEULASTA SC SCH; -diphenhydrAMINE 25 MG TAB (BENADRYL) CANCER CENTER PO SCH; -diphenhydrAMINE 50 MG/ML INJ (CANCER CENTER) IV PRN
[2017-08-23] MEDS ORDERED: [UNRECOGNIZED DRUG - OTHER] IV SCH (11:15)
[2017-08-23] MEDS ORDERED: METHOTREXATE IV SCH (11:15)
[2017-08-23] MEDS ORDERED: NS IV SCH (11:15)
--- NOTE | 2017-08-23 13:46 | Progress Note-Standard ---
Standard Progress Note Progress Notes/Assess & Plan Date Seen by Provider: Aug 23, 2017 Time Seen by Provider: 11:35 Progress/Assessment & Plan Anesthesia Note ([id number]) Called to [facility] for intrathecal methotrexate injection. Discussed the details of the procedure with the patient and her son and she agreed to the plan. Pt in sitting pos'n. Sterile P/D with ChloraPrep. 2 mL of 1% lidocaine for local at L3-4 level. 22 G Pencan needle used and + CSF after redirect times one. 6 mL CSF drawn off and sent to lab per Dr Aguilar's order. He then injected the 6 mL of Methotrexate. Needle was removed and a sterile bandage applied. Pt tolerated the procedure well. CAROLE SINGH DO Aug 23, 2017 13:46
[2017-08-23 14:12] LABS: APPEARANCE,CSF CLEAR; COLOR,CSF COLORLESS; CSF TUBE NUMBER 2; LYMPHOCYTES,CSF 99 %; RED BLOOD CELL,CSF 26 CELLS (0-0); WHITE BLOOD CELL,CSF 122 CELLS (0-5)
== END 2017-10-06 | disposition home or self-care (01) ==
LOC: ONC 11:01
PROVIDERS: ATTEND Internal Medicine Hematology & Oncology
DX: C50.811 Malignant neoplasm of overlapping sites of right female breast (principal); R59.0 Localized enlarged lymph nodes; I25.10 Atherosclerotic heart disease of native coronary artery without angina pectoris; I10 Essential (primary) hypertension; E78.00 Pure hypercholesterolemia, unspecified; K21.9 Gastro-esophageal reflux disease without esophagitis; E03.9 Hypothyroidism, unspecified; Z17.0 Estrogen receptor positive status [ER+]; Z90.710 Acquired absence of both cervix and uterus; Z87.891 Personal history of nicotine dependence; Z79.899 Other long term (current) drug therapy
CPT/HCPCS: 88112; 89051